=== PATIENT | male | born 1975 | race Caucasian/White ===

== ENCOUNTER 2017-10-24 22:59 | Inpatient (IN) | payer OTHER ==
[~2017-10-24] VITALS: Ht 175.3 cm; Wt 124.3 kg
[~2017-10-24 22:59] MED LIST: FLEXERIL10 MG PO
[2017-10-24 23:34] LABS: HEMATOCRIT 43.3 % (38.0-50.0); HEMOGLOBIN 15.5 G/DL (12.5-16.6); MCH 31.6 PG (29.0-34.0); MCHC 35.8 G/DL (30.0-36.0); MCV 88.2 FL (86-99); PLATELET COUNT 168 K/uL (156-360); RBC DIS.WIDTH-CV 12.6 % (11.8-14.6); RBC DIS.WIDTH-SD 40.6 % (39-53); RED BLOOD COUNT 4.91 M/uL (4.00-5.50); WHITE BLOOD COUNT 13.5 K/uL (4.1-10.2)
[2017-10-25 00:24] LABS: ALBUMIN 4.3 g/dL (3.2-4.8); CHLORIDE 107 mEq/L (99-109); POTASSIUM 3.8 mEq/L (3.7-5.4); SODIUM 138 mEq/L (136-147)
[2017-10-25 00:26] LABS: GLUCOSE 121 mg/dL (70-99)
[2017-10-25 00:27] LABS: TOTAL PROTEIN 7.3 g/dL (6.4-8.3)
[2017-10-25 00:28] LABS: TOTAL BILIRUBIN 0.9 mg/dL (0.0-1.0)
[2017-10-25 00:30] LABS: ALKALINE PHOSPHATASE 78 IU/L (3-129); CREATININE 1.1 mg/dL (0.6-1.3); GFR ESTIMATE (CALCULATED) > 59 mL/min/ (58.99-99999)
[2017-10-25 00:31] LABS: UREA NITROGEN (BUN) 15 mg/dL (9-23)
[2017-10-25 00:32] LABS: AST (GOT) 19 IU/L (2-34)
[2017-10-25 00:33] LABS: ALT (GPT) 21 IU/L (3-49)
[2017-10-25 03:43] VITALS: BP 148/85
[2017-10-25 07:00] VITALS: BP 132/80
[2017-10-25 12:01] VITALS: BP 137/68
[2017-10-25 17:36] VITALS: BP 128/71
[2017-10-25 20:10] VITALS: BP 134/82
[2017-10-25 23:40] VITALS: BP 152/69; BP 1539/71
[2017-10-26 03:50] VITALS: BP 117/56
[2017-10-26 07:14] LABS: BASOPHIL (%) 0.1 % (0-1); EOSINOPHIL (%) 0.1 % (0-5); HEMATOCRIT 40.3 % (38.0-50.0); HEMOGLOBIN 14.1 G/DL (12.5-16.6); IMMATURE GRANULOCYTE (%) 0.4 % (0.0-0.7); LYMPHOCYTE (%) 12.2 % (15-42); LYMPHOCYTE COUNT 1.7 K/uL (1.0-2.8); MCH 31.2 PG (29.0-34.0); MCV 89.2 FL (86-99); MONOCYTE (%) 7.8 % (3-12); MONOCYTE COUNT 1.1 K/uL (0-0.8); NEUTROPHIL (%) 79.4 % (45-76); PLATELET COUNT 191 K/uL (156-360); RBC DIS.WIDTH-CV 12.2 % (11.8-14.6); RBC DIS.WIDTH-SD 39.5 % (39-53); RED BLOOD COUNT 4.52 M/uL (4.00-5.50); WHITE BLOOD COUNT 13.9 K/uL (4.1-10.2)
[2017-10-26 07:15] VITALS: BP 119/75
[2017-10-26 07:35] LABS: CHLORIDE 105 MEQ/L (99-109); CREATININE 1.1 MG/DL (0.6-1.3); GFR ESTIMATE (CALCULATED) > 59 mL/min/ (58.99-99999); GLUCOSE 110 mg/dL (70-99); POTASSIUM 4.4 MEQ/L (3.7-5.4); SODIUM 140 MEQ/L (136-147); UREA NITROGEN (BUN) 21 mg/dL (9-23)
[2017-10-26] MEDS ORDERED: KETOROLAC15 MG/1 M2 IV (16:18)
[2017-10-26] MEDS ORDERED: TORADOL10 MG PO (16:25)
[2017-10-26 16:45] VITALS: BP 136/88
== END 2017-10-26 17:48 | disposition home or self-care (01) | DRG 330 ==
LOC: EME 22:59 → EDOF 10-25 02:51 → ENRESERV 10-25 02:55 → 2EAST 10-25 03:35
PROVIDERS: Student in an Organized Health Care Education/Training Program
DX: K35.80 Unspecified acute appendicitis (principal); K42.9 Umbilical hernia without obstruction or gangrene; K66.0 Peritoneal adhesions (postprocedural) (postinfection); G89.29 Other chronic pain; M54.5 Low back pain; E66.01 Morbid (severe) obesity due to excess calories; Z68.41 Body mass index [BMI] 40.0-44.9, adult; Q43.0 Meckel's diverticulum (displaced) (hypertrophic)
CPT/HCPCS: 74177; 80048; 80053; 81003; 85025; 85027; 88304; 88305; 99281; 99285; J0131; J0295; J0330; J1100; J1170; J1885; J2250; J2405; J2710; J3010; J7050; J7120; S0074